=== PATIENT | male | born 1980 | race Caucasian/White ===

== ENCOUNTER 2025-02-12 10:44 | Emergency (ER) | payer MEDICAID ==
[~2025-02-12] VITALS: Ht 172.7 cm; Wt 78.0 kg
[2025-02-12 10:58] VITALS: O2SAT 99
[2025-02-12 11:13] VITALS: BP 137/74; PULSE 68; RESP 18; TEMP 36.9; O2SAT 99
[2025-02-12] MEDS: CEFTRIAXONE SODIUM 500MG VIAL IM ONE (12:07)
[2025-02-12 12:11] LABS: CLARITY URINE TURBID (CLEAR); COLOR URINE YELLOW (YELLOW); GLUCOSE URINE NEGATIVE (NEGATIVE); KETONES URINE TRACE (NEGATIVE); LEUKOCYTE ESTERASE URINE NEGATIVE (NEGATIVE); NITRITE URINE NEGATIVE (NEGATIVE); OCCULT BLOOD URINE NEGATIVE (NEGATIVE); PH URINE 5.5 (4.5-8.0); PROTEIN URINE TRACE (NEGATIVE); SPECIFIC GRAVITY URINE 1.028 (1.005-1.030); UROBILINOGEN URINE 1.0 E.U./dL (0.2-1.0)
[2025-02-12 12:32] LABS: AMORPHOUS SEDIMENT URINE 2+ /lpf; BACTERIA URINE NONE SEEN; RBC URINE 0-2 /hpf (0-2); SQUAMOUS EPITHELIAL CELL URINE RARE /lpf (RARE/1+); WBC URINE 0-2 /hpf (0-2); YEAST URINE NONE SEEN
[2025-02-12] MEDS ORDERED: DOXY100T2 MT (12:42)
== END 2025-02-12 13:02 | disposition home or self-care (01) ==
LOC: ER 10:44 → EDBD 10:44 → ER 13:02
DX: Z20.2 Contact with and (suspected) exposure to infections with a predominantly sexual mode of transmission (principal)
CPT/HCPCS: 99283; 81003; 96372; J0696

== ENCOUNTER 2025-02-15 08:50 | Emergency (ER) | payer MEDICAID ==
[~2025-02-15] VITALS: Ht 175.3 cm; Wt 84.0 kg
[~2025-02-15 08:50] MED LIST: DOXY100T2 MT
[2025-02-15 09:14] VITALS: TEMP 36.8; O2SAT 99
[2025-02-15 12:33] LABS: CLARITY URINE CLEAR (CLEAR); COLOR URINE YELLOW (YELLOW); GLUCOSE URINE NEGATIVE (NEGATIVE); KETONES URINE NEGATIVE (NEGATIVE); LEUKOCYTE ESTERASE URINE NEGATIVE (NEGATIVE); NITRITE URINE NEGATIVE (NEGATIVE); OCCULT BLOOD URINE NEGATIVE (NEGATIVE); PH URINE 5.5 (4.5-8.0); PROTEIN URINE NEGATIVE (NEGATIVE); SPECIFIC GRAVITY URINE 1.018 (1.005-1.030); UROBILINOGEN URINE 0.2 E.U./dL (0.2-1.0)
[2025-02-15] MEDS ORDERED: PHEN-815 MT (13:20)
[2025-02-15 13:30] VITALS: BP 122/72; PULSE 67; RESP 16; O2SAT 100
[2025-02-16] MEDS ORDERED: TAMS-54 MT (20:20)
[2025-02-17 09:11] LABS: HSV TYPE 2 SPECIFIC AB IGG Non Reactive (Non Reactive)
[2025-02-18 04:10] LABS: CHLAMYDIA TRACHOMATIS NAA Negative (Negative); NEISSERIA GONORRHOEAE NAA Negative (Negative)
== END 2025-02-15 13:35 | disposition home or self-care (01) ==
LOC: ER 08:50
DX: R30.0 Dysuria (principal); Z11.3 Encounter for screening for infections with a predominantly sexual mode of transmission
CPT/HCPCS: 36415; 81003; 86592; 86695; 86696; 87491; 87591; 99283

== ENCOUNTER 2025-02-16 18:33 | Emergency (ER) | payer MEDICAID ==
[~2025-02-16] VITALS: Ht 165.1 cm; Wt 71.0 kg
[~2025-02-16 18:33] MED LIST changes: +PHEN-815 MT
[2025-02-16 18:49] VITALS: O2SAT 100
[2025-02-16] MEDS ORDERED: TAMS-54 MT (20:20)
[2025-02-16 20:39] LABS: CLARITY URINE CLEAR (CLEAR); COLOR URINE ORANGE (YELLOW); GLUCOSE URINE NEGATIVE (NEGATIVE); KETONES URINE NEGATIVE (NEGATIVE); LEUKOCYTE ESTERASE URINE 1+ (NEGATIVE); NITRITE URINE POSITIVE (NEGATIVE); OCCULT BLOOD URINE NEGATIVE (NEGATIVE); PH URINE 5.0 (4.5-8.0); PROTEIN URINE 1+ (NEGATIVE); SPECIFIC GRAVITY URINE 1.032 (1.005-1.030); UROBILINOGEN URINE 1.0 E.U./dL (0.2-1.0)
[2025-02-16 20:49] LABS: RBC URINE NONE SEEN /hpf (0-2)
[2025-02-16 20:50] VITALS: BP 136/91; PULSE 77; RESP 14; TEMP 36.8; O2SAT 99
[2025-02-16 20:50] LABS: BACTERIA URINE TRACE; CALCIUM OXALATE CRYSTALS URINE 1+ /lpf; SQUAMOUS EPITHELIAL CELL URINE RARE /lpf (RARE/1+)
== END 2025-02-16 20:51 | disposition home or self-care (01) ==
LOC: ER 18:33
DX: R30.0 Dysuria (principal); Z11.3 Encounter for screening for infections with a predominantly sexual mode of transmission
CPT/HCPCS: 81003; 99283

== ENCOUNTER 2025-02-20 12:17 | Emergency (ER) | payer MEDICAID ==
[~2025-02-20] VITALS: Ht 180.3 cm; Wt 78.0 kg
[~2025-02-20 12:17] MED LIST changes: +TAMS-54 MT
[2025-02-20 12:18] VITALS: O2SAT 100
[2025-02-20 12:33] VITALS: BP 121/81; PULSE 71; RESP 14; TEMP 36.8; O2SAT 98
[2025-02-21] MEDS ORDERED: VALA10002 MT (23:31)
== END 2025-02-20 17:26 | disposition home or self-care (01) ==
LOC: ER 12:17
DX: A60.02 Herpesviral infection of other male genital organs (principal); Z11.3 Encounter for screening for infections with a predominantly sexual mode of transmission
CPT/HCPCS: 99282

== ENCOUNTER 2025-02-21 20:34 | Emergency (ER) | payer MEDICAID ==
[~2025-02-21] VITALS: Ht 170.2 cm; Wt 84.1 kg
[2025-02-21 20:58] VITALS: O2SAT 99
[2025-02-21] MEDS ORDERED: VALA10002 MT (23:31)
[2025-02-22 00:20] VITALS: BP 118/74; PULSE 67; RESP 14; TEMP 36.9; O2SAT 99
== END 2025-02-22 00:20 | disposition home or self-care (01) ==
LOC: ER 20:34
DX: B00.1 Herpesviral vesicular dermatitis (principal); R30.0 Dysuria; Z79.624 Long term (current) use of inhibitors of nucleotide synthesis; Z79.899 Other long term (current) drug therapy
CPT/HCPCS: 99283